=== PATIENT | male | born 1990 | race African-American/Black ===

== ENCOUNTER → 2023-11-07 | Outpatient (CLI) | payer OTHER | END | disposition home or self-care (01) | LOC: RADPV 09:34 | PROVIDERS: ATTEND Chiropractor | DX: I51.9 Heart disease, unspecified (principal); M47.9 Spondylosis, unspecified; M41.9 Scoliosis, unspecified | CPT/HCPCS: 71046; 72040; 72070; 72100; 72220; 93005; 93306 ==